=== PATIENT | female | born 1945 | race Caucasian/White ===

== ENCOUNTER 2018-06-15 23:20 | Inpatient (IN) | payer MEDICARE, BC ==
[~2018-06-15] VITALS: Ht 152.4 cm; Wt 83.2 kg
[2018-06-15] MEDS ORDERED: SPIR1TAB PO (23:45)
[2018-06-15] MEDS ORDERED: HYDR-3245 PO (23:45)
[2018-06-15] MEDS ORDERED: BUPR150T73 PO (23:45)
[2018-06-15] MEDS ORDERED: ZOLP-413 PO (23:45)
[2018-06-15] MEDS ORDERED: ESTR0.3T PO (23:45)
[2018-06-15] MEDS ORDERED: VERA180C4 PO (23:45)
[2018-06-15] MEDS ORDERED: TRAM50TA2 PO (23:45)
[2018-06-15] MEDS ORDERED: BACL20TA PO (23:45)
[2018-06-15] MEDS ORDERED: LEVO75TA5 PO (23:45)
[2018-06-15] MEDS ORDERED: MULTIVITAMIN (23:45)
[2018-06-15] MEDS ORDERED: SERZONE PO (23:46)
--- NOTE | 2018-06-15 23:48 | NUR ---
PT SENT FROM [facility]. [place], CAMPING IN [place] WHEN DEVELOPED RUQ ABDOMINAL PAIN AROUND 0100. HAVING NAUSEA, VOMITING, AND DRY HEAVES UNTIL 1700 TODAY.
[2018-06-16] MEDS ORDERED: HYDROmorphone 2 MG/ML, 1ML ONE ×2 (00:13→16:15)
--- NOTE | 2018-06-16 00:16 | NUR ---
PT MEDICATED FOR PAIN PER EMAR WITH DILAUDID 1MG IVP. PT TOLERATED WELL. VSS.
[2018-06-16] MEDS ORDERED: POTASSIUM CHLORIDE 40 MEQ in SODIUM CHLORIDE 0.9% 500 ML IV ONE (00:30)
[2018-06-16] MEDS ORDERED: HYDROmorphone 2 MG/ML, 1ML IVPush PRN (00:30)
[2018-06-16] MEDS ORDERED: PLEASE ENTER ALLERGIES MC SCH (00:30)
--- NOTE | 2018-06-16 00:45 | NUR ---
PT GIVEN MOUTH SWABS. DENIES PAIN AT THIS TIME. VSS. UPDATED ON POC.
--- NOTE | 2018-06-16 01:25 | NUR ---
REPORT GIVEN TO AUGUSTO SMITH. ALL QUESTIONS ANSWERED.
[2018-06-16] MEDS ORDERED: ENALAPRILAT 1.25 MG/ML, 2ML IVPush PRN (02:00)
[2018-06-16] MEDS ORDERED: ACETAMINOPHEN 325 MG TABLET PO PRN ×2 (02:00→14:30)
[2018-06-16] MEDS ORDERED: ONDANSETRON 2MG/ML, 2ML IVPush PRN (02:00)
[2018-06-16] MEDS ORDERED: ZOSYN PER PHARMACY MC PRN (02:30)
[2018-06-16 03:11] VITALS: BP 125/69
[2018-06-16] MEDS: HYDROmorphone 2 MG/ML, 1ML IVPush PRN ×5 (03:25→16:48)
[2018-06-16] MEDS ORDERED: PIPERACILLIN/TAZO/PMX 3.375GM 50 ML IV ONE (03:30)
[2018-06-16] MEDS: LACTATED RINGERS 1,000 ML IV SCH ×2 (05:19→20:00)
[2018-06-16 05:34] LABS: MEAN CORPUSCULAR HGB CONC 33.7 g/dL (32.4-35.8); MEAN CORPUSCULAR VOLUME 91.9 fL (80-100); MEAN PLATELET VOLUME 7.9 fL (7.4-10.4); PLATELET COUNT 364 x10^3/uL (130-400); RED BLOOD COUNT 4.43 x10^6/uL (3.82-5.3); RED CELL DISTRIBUTION WIDTH 14.7 % (9.6-15.2)
[2018-06-16 05:41] LABS: INTERNATIONAL NORMALIZED RATIO 1.1 (0.93-1.1); PROTHROMBIN TIME 11.5 Seconds (9.6-11.5)
[2018-06-16 05:46] LABS: ALBUMIN 2.7 g/dL (3.4-5.0); ANION GAP 7 mmol/L (5-15); CALCIUM 7.7 mg/dL (8.5-10.1); CHLORIDE 111 mmol/L (98-107)
[2018-06-16 05:59] LABS: ALANINE AMINOTRANSFERASE 31 U/L (12-78); ALKALINE PHOSPHATASE 53 U/L (45-117); BILIRUBIN,TOTAL 0.7 mg/dL (0.2-1.0); CREATININE 0.88 mg/dL (0.55-1.02)
[2018-06-16 06:06] LABS: MD YES
[2018-06-16 06:13] LABS: BANDS%(MANUAL) 12 % (0-7); LYMPH#(MANUAL) 1.13 x10^3/uL (1-3.4); LYMPHS% (MANUAL) 4 % (22-44); MONOS#(MANUAL) 1.13 x10^3/uL (0.3-2.7); MONOS% (MANUAL) 4 % (2-9); SEG#(MANUAL) 22.64 x10^3/uL (1.8-6.8); SEGS% (MANUAL) 80 % (42-75)
[2018-06-16 06:14] LABS: <PLATELET ESTIMATE> ADEQUATE; <PLT MORPHOLOGY> NORMAL PLT MORPH; <RBC MORPHOLOGY> NORMAL
[2018-06-16 07:06] VITALS: BP 117/74
[2018-06-16] MEDS: PIPERACILLIN/TAZO/PMX 3.375GM 50 ML IV SCH ×2 (12:20→18:05)
[2018-06-16 12:40] VITALS: BP 137/63
[2018-06-16] MEDS ORDERED: BUPIVACAINE/EPI 0.5% 1:200K ONE (13:23)
[2018-06-16] MEDS ORDERED: FENTANYL PF 250 MCG/5ML ONE (14:01)
[2018-06-16] MEDS ORDERED: ONDANSETRON ODT 8 MG PO PRN (14:30)
[2018-06-16] MEDS ORDERED: METOPROLOL 1 MG/ML, 5ML IV PRN (14:30)
[2018-06-16] MEDS ORDERED: OXYcodone 5 MG/5 ML ORAL.SOL UDC PO PRN (14:30)
[2018-06-16] MEDS ORDERED: LORazepam 2 MG/ML, 1ML IVPush PRN (14:30)
[2018-06-16] MEDS ORDERED: LABETALOL 5MG/ML, 20ML IV PRN (14:30)
[2018-06-16] MEDS ORDERED: hydrALAzine 20 MG/ML, 1ML IV PRN (14:30)
[2018-06-16] MEDS ORDERED: ONDANSETRON 2MG/ML, 2ML IV PRN (14:30)
[2018-06-16] MEDS ORDERED: PROMETHAZINE 25 MG/ML, 1ML IV PRN (14:30)
[2018-06-16] MEDS ORDERED: PROMETHAZINE 12.5 MG SUPP PR PRN (14:30)
[2018-06-16] MEDS ORDERED: NEOSTIGMINE 1 MG/ML, 10ML ONE (15:01)
[2018-06-16] MEDS ORDERED: GLYCOPYRROLATE 0.2MG/1ML, 5ML ONE (15:01)
[2018-06-16] MEDS ORDERED: ROCURONIUM 10MG/ML,5ML ONE (15:01)
[2018-06-16] MEDS ORDERED: PROPOFOL 10 MG/ML, 20ML ONE (15:01)
[2018-06-16] MEDS ORDERED: DEXAMETHASONE 4 MG/ML, 1ML ONE (15:01)
[2018-06-16] MEDS ORDERED: ONDANSETRON 2MG/ML, 2ML ONE (15:01)
[2018-06-16] MEDS ORDERED: SUCCINYLCHOLINE 20 MG/ML, 10ML ONE (15:01)
[2018-06-16] MEDS ORDERED: SUGAMMADEX 200 MG/2 ML IVPush ONE (15:01)
[2018-06-16] MEDS ORDERED: CEFAZOLIN 1,000 MG ONE (15:01)
[2018-06-16] MEDS ORDERED: MICROFIBRILLAR COLLAGEN 1 GM TP ONE (15:09)
[2018-06-16] MEDS ORDERED: THROMBIN 5,000 UNIT VIAL TP ONE (15:09)
[2018-06-16] MEDS ORDERED: ACETAMINOPHEN 650 MG/20.3 ML UDC ONE (15:53)
[2018-06-16] MEDS ORDERED: FENTANYL PF 100 MCG/2ML ONE (15:53)
[2018-06-16] MEDS ORDERED: OXYcodone 5 MG/5 ML ORAL.SOL UDC ONE (15:53)
[2018-06-16] MEDS: FENTANYL PF 100 MCG/2ML IV PRN ×2 (16:02→16:13)
[2018-06-16] MEDS ORDERED: DIPHENHYDRAMINE 25 MG CAPSULE PO PRN (18:30)
[2018-06-16 20:04] VITALS: BP 147/66
[2018-06-17] VITALS (7 sets, daily range): BP systolic 98–142; BP diastolic 61–81
[2018-06-17] MEDS: HYDROmorphone 2 MG/ML, 1ML IVPush PRN ×3 (00:24→15:31)
[2018-06-17] MEDS: PIPERACILLIN/TAZO/PMX 3.375GM 50 ML IV SCH ×4 (00:24→18:19)
[2018-06-17] MEDS: LACTATED RINGERS 1,000 ML IV SCH (05:47)
[2018-06-17 08:10] LABS: MEAN CORPUSCULAR HEMOGLOBIN 30.3 pg (27.0-34.8); MEAN CORPUSCULAR HGB CONC 32.8 g/dL (32.4-35.8); MEAN CORPUSCULAR VOLUME 92.3 fL (80-100); PLATELET COUNT 318 x10^3/uL (130-400); RED BLOOD COUNT 4.33 x10^6/uL (3.82-5.3); RED CELL DISTRIBUTION WIDTH 15.3 % (9.6-15.2)
[2018-06-17 08:18] LABS: ALANINE AMINOTRANSFERASE 69 U/L (12-78); ALBUMIN 2.6 g/dL (3.4-5.0); ANION GAP 4 mmol/L (5-15); CALCIUM 7.8 mg/dL (8.5-10.1); CHLORIDE 109 mmol/L (98-107)
[2018-06-17 08:20] LABS: ALKALINE PHOSPHATASE 65 U/L (45-117); BILIRUBIN,TOTAL 0.5 mg/dL (0.2-1.0); CREATININE 0.85 mg/dL (0.55-1.02); TOTAL PROTEIN 6.6 g/dL (6.4-8.2)
[2018-06-17] MEDS ORDERED: FENTANYL PF 250 MCG/5ML ONE (08:24)
[2018-06-17] MEDS ORDERED: PROPOFOL 10 MG/ML, 20ML ONE ×2 (08:25→08:26)
[2018-06-17] MEDS ORDERED: NEOSTIGMINE 1 MG/ML, 10ML ONE (08:26)
[2018-06-17] MEDS ORDERED: ONDANSETRON 2MG/ML, 2ML ONE (08:26)
[2018-06-17] MEDS ORDERED: ROCURONIUM 10MG/ML,5ML ONE (08:26)
[2018-06-17] MEDS ORDERED: DEXAMETHASONE 4 MG/ML, 1ML ONE (08:26)
[2018-06-17] MEDS ORDERED: GLYCOPYRROLATE 0.2MG/1ML, 5ML ONE (08:26)
[2018-06-17 08:32] LABS: MD YES
[2018-06-17 08:35] LABS: <PLATELET ESTIMATE> ADEQUATE; <PLT MORPHOLOGY> NORMAL PLT MORPH; <RBC MORPHOLOGY> NORMAL; BANDS%(MANUAL) 4 % (0-7); LYMPH#(MANUAL) 1.26 x10^3/uL (1-3.4); LYMPHS% (MANUAL) 5 % (22-44); MONOS#(MANUAL) 0.25 x10^3/uL (0.3-2.7); MONOS% (MANUAL) 1 % (2-9); SEG#(MANUAL) 22.59 x10^3/uL (1.8-6.8); SEGS% (MANUAL) 90 % (42-75)
[2018-06-17] MEDS ORDERED: PROMETHAZINE 25 MG/ML, 1ML IV PRN (09:00)
[2018-06-17] MEDS ORDERED: ONDANSETRON 2MG/ML, 2ML IV PRN (09:00)
[2018-06-17] MEDS ORDERED: PROMETHAZINE 25 MG/ML, 1ML IM PRN ×2 (09:00)
[2018-06-17] MEDS ORDERED: MEPERIDINE/PF 25MG/0.5ML IVPush PRN (09:00)
[2018-06-17] MEDS ORDERED: hydrALAzine 20 MG/ML, 1ML IV PRN (09:00)
[2018-06-17] MEDS ORDERED: HYDROmorphone 2 MG/ML, 1ML IVPush PRN (09:00)
[2018-06-17] MEDS ORDERED: ONDANSETRON ODT 8 MG PO PRN (09:00)
[2018-06-17] MEDS ORDERED: ALBUTEROL SULFATE 2.5 MG/3 ML NPPB PRN (09:00)
[2018-06-17] MEDS ORDERED: FENTANYL PF 100 MCG/2ML IV PRN (09:00)
[2018-06-17] MEDS ORDERED: OXYcodone 5 MG/5 ML ORAL.SOL UDC PO PRN (09:00)
[2018-06-17] MEDS ORDERED: PROMETHAZINE 12.5 MG SUPP PR PRN (09:00)
[2018-06-17] MEDS ORDERED: MORPHINE SULFATE 4 MG/ML, 1ML IVPush PRN (09:00)
[2018-06-17] MEDS ORDERED: PROMETHAZINE 25 MG SUPP PR PRN (09:00)
[2018-06-17] MEDS ORDERED: LABETALOL 5MG/ML, 20ML IV PRN (09:00)
[2018-06-17] MEDS ORDERED: SUGAMMADEX 200 MG/2 ML IVPush ONE (09:37)
[2018-06-17] MEDS ORDERED: OXYcodone 5 MG/5 ML ORAL.SOL UDC ONE (09:55)
[2018-06-17] MEDS ORDERED: FENTANYL PF 100 MCG/2ML ONE (10:02)
[2018-06-17] MEDS ORDERED: SODIUM CHLORIDE 0.9%, 500ML IVBOLUS ONE (11:30)
[2018-06-17] MEDS: VERAPAMIL ER 180MG TABLET.ER PO SCH (11:38)
[2018-06-17] MEDS ORDERED: HYDROcodone/APAP 5/325 TABLET PO PRN (17:30)
[2018-06-17] MEDS ORDERED: ZOLPIDEM 5MG TABLET PO PRN (17:30)
[2018-06-17] MEDS: HEPARIN 5,000 UNITS/ML, 1ML SQ SCH (22:57)
[2018-06-18] MEDS: PIPERACILLIN/TAZO/PMX 3.375GM 50 ML IV SCH ×3 (00:12→12:27)
[2018-06-18 01:14] VITALS: BP 124/77
[2018-06-18] MEDS ORDERED: LACTATED RINGERS 1,000 ML IV SCH (02:00)
[2018-06-18 05:58] LABS: MEAN CORPUSCULAR HEMOGLOBIN 30.5 pg (27.0-34.8); MEAN CORPUSCULAR HGB CONC 33.3 g/dL (32.4-35.8); MEAN CORPUSCULAR VOLUME 91.6 fL (80-100); MEAN PLATELET VOLUME 7.9 fL (7.4-10.4); PLATELET COUNT 306 x10^3/uL (130-400); RED BLOOD COUNT 3.62 x10^6/uL (3.82-5.3); RED CELL DISTRIBUTION WIDTH 14.6 % (9.6-15.2)
[2018-06-18 05:59] LABS: ALBUMIN 2.1 g/dL (3.4-5.0); ANION GAP 6 mmol/L (5-15); CALCIUM 7.4 mg/dL (8.5-10.1); CHLORIDE 107 mmol/L (98-107)
[2018-06-18] MEDS ORDERED: LEVOTHYROXINE 75 MCG TABLET PO SCH (06:00)
[2018-06-18 06:02] LABS: ALANINE AMINOTRANSFERASE 63 U/L (12-78); ALKALINE PHOSPHATASE 66 U/L (45-117); BILIRUBIN,TOTAL 0.4 mg/dL (0.2-1.0); CREATININE 0.77 mg/dL (0.55-1.02); TOTAL PROTEIN 5.7 g/dL (6.4-8.2)
[2018-06-18] MEDS: HEPARIN 5,000 UNITS/ML, 1ML SQ SCH ×2 (06:33→15:55)
[2018-06-18 06:48] LABS: MD YES
[2018-06-18 06:51] LABS: <RBC MORPHOLOGY> NORMAL; BAND#(MANUAL) 1.12 x10^3/uL; BANDS%(MANUAL) 6 % (0-7); LYMPH#(MANUAL) 1.67 x10^3/uL (1-3.4); LYMPHS% (MANUAL) 9 % (22-44); MONOS#(MANUAL) 0.56 x10^3/uL (0.3-2.7); MONOS% (MANUAL) 3 % (2-9); SEG#(MANUAL) 15.25 x10^3/uL (1.8-6.8); SEGS% (MANUAL) 82 % (42-75)
[2018-06-18 06:52] LABS: <PLATELET ESTIMATE> ADEQUATE; <PLT MORPHOLOGY> NORMAL PLT MORPH
[2018-06-18 08:04] VITALS: BP 152/81
[2018-06-18] MEDS ORDERED: ESTROGEN CONJUGATED 0.3 MG TABLET PO SCH (09:00)
[2018-06-18] MEDS ORDERED: BUPROPION SR 150 MG TABLET PO SCH (09:00)
[2018-06-18] MEDS: VERAPAMIL ER 180MG TABLET.ER PO SCH (09:18)
[2018-06-18 14:51] VITALS: BP 154/73
[2018-06-18] MEDS ORDERED: CIPR500T87 PO (15:11)
[2018-06-18] MEDS ORDERED: ONDA4TAB13 SL (15:28)
== END 2018-06-18 17:15 | disposition home or self-care (01) | DRG 417 ==
LOC: ED 23:43 → EDIP 06-16 00:53 → 4NOR 06-16 02:51 → DCLOUNGE 06-18 17:00
PROVIDERS: ADMIT Family Medicine; ATTEND Internal Medicine
PROC: 0FT44ZZ Resection of Gallbladder, Percutaneous Endoscopic Approach (ICD-10-PCS; principal; 2018-06-16 14:00)
PROC: 0FC98ZZ Extirpation of Matter from Common Bile Duct, Via Natural or Artificial Opening Endoscopic (ICD-10-PCS; 2018-06-17)
PROC: BF111ZZ Fluoroscopy of Biliary and Pancreatic Ducts using Low Osmolar Contrast (ICD-10-PCS; 2018-06-17)
DX: K80.63 Calculus of gallbladder and bile duct with acute cholecystitis with obstruction (principal); E43 Unspecified severe protein-calorie malnutrition; R65.11 Systemic inflammatory response syndrome (SIRS) of non-infectious origin with acute organ dysfunction; K82.1 Hydrops of gallbladder; J45.909 Unspecified asthma, uncomplicated; D72.825 Bandemia; E03.9 Hypothyroidism, unspecified; E66.9 Obesity, unspecified; I47.9 Paroxysmal tachycardia, unspecified; E73.9 Lactose intolerance, unspecified; E87.6 Hypokalemia; G47.00 Insomnia, unspecified; K76.89 Other specified diseases of liver; F32.9 Major depressive disorder, single episode, unspecified; M79.7 Fibromyalgia; Z81.1 Family history of alcohol abuse and dependence; Z86.010 Personal history of colon polyps; Z90.710 Acquired absence of both cervix and uterus; Z93.3 Colostomy status; Z68.35 Body mass index [BMI] 35.0-35.9, adult; Z79.899 Other long term (current) drug therapy; Z90.49 Acquired absence of other specified parts of digestive tract
CPT/HCPCS: 36415; 74181; 74328; 80053; 84443; 85025; 85610; 87070; 87075; 87077; 87186; 87205; 88304; 93005; 96374; 96375; C1729; G0378; J0690; J1100; J1170; J1644; J2405; J2543; J2704; J2710; J3010; J3480; C1769; J0330; J7040; J7120; Q0163